=== PATIENT | male | born 1975 | race Caucasian/White ===

== ENCOUNTER 2017-09-14 09:54 | Emergency (ER) | payer OTHER ==
[2017-09-14 09:59] VITALS: TEMP 98.1
[2017-09-14] MEDS ORDERED: ONDANSETRON 4 MG/2 ML VIAL IVP ONE (10:01)
[2017-09-14] MEDS ORDERED: NS 1,000 ML IV ONE ×2 (10:01)
--- NOTE | 2017-09-14 10:01 | EDPHY ---
H & P Stated Complaint: N/V/D x 2 days; "I think I have food poisoning" Time Seen by Provider: 09/14/17 10:00 HPI/ROS: CHIEF COMPLAINT: Nausea, vomiting and diarrhea HISTORY OF PRESENT ILLNESS: The patient presents to the ED with a several day history of nausea, vomiting and diarrhea. The patient denies significant abdominal pain or alcohol consumption. The patient has no prior history of abdominal pathology or significant surgical history. The patient has not been on recent antibiotics or travel outside the [place]. The patient may have had a small amount of hematemesis in his vomit this morning but denies any melena. He denies significant NSAID usage or anticoagulant use. The patient feels globally weak from presumed dehydration. The patient denies fever, cough or congestion. He denies additional acute complaints. REVIEW OF SYSTEMS: A comprehensive 10 point review of systems is otherwise negative aside from elements mentioned in the history of present illness. Source: Patient - Personal History Current Tetanus Diphtheria and Acellular Pertussis (TDAP): Yes - Medical/Surgical History Other PMH: glaucoma R eye - Social History Smoking Status: Former smoker - Physical Exam Exam: General Appearance: Alert, no distress Eyes: Pupils equal and round no pallor or injection ENT, Mouth: Dry mucous membranes Respiratory: There are no retractions, lungs are clear to auscultation Cardiovascular: Regular rate and rhythm Gastrointestinal: Abdomen is soft and nontender, minimal epigastric tenderness , no masses, bowel sounds normal Neurological: A&O, normal motor function, normal sensory exam, normal cranial nerves Skin: Warm and dry, no rashes Musculoskeletal: Neck is supple nontender Extremities: symmetrical, full range of motion Constitutional: Initial Vital Signs Temperature (C) 36.7 C 09/14/17 09:56 Heart Rate 79 09/14/17 09:56 Respiratory Rate 18 09/14/17 09:56 Blood Pressure 109/71 09/14/17 09:56 O2 Sat (%) 96 09/14/17 09:56 O2 Delivery Mode Room Air Allergies/Adverse Reactions: No Known Allergies Allergy (Unverified 09/14/17 09:59) Home Medications: Medication Instructions Recorded Eye Drops For Glaucoma 09/14/17 Medical Decision Making ED Course/Re-evaluation: The patient presents to the ED with a several day history of vomiting and diarrhea. The patient did have a small amount of hematemesis likely secondary to a Khloe-Chakraborty type tear. The patient's abdominal examination is benign without evidence of an acute abdomen or peritonitis. The patient had an IV established. He received 2 L of normal saline for IV rehydration and dehydration. The patient's laboratory studies demonstrate no evidence of a significant leukocytosis, anemia, renal failure or metabolic derangement. The patient received serial examinations in the ED over a 2.5 hr period. At 1: 00 p.m. he is feeling much better and is tolerating the p.o. liquids and crackers without recurrent symptoms. The patient will be discharged home with a prescription for Zofran and encouraged to use Imodium as needed. He is given customary aftercare instructions and return precautions. Differential Diagnosis: Differential diagnosis considered includes dehydration, metabolic abnormality, gastroenteritis, renal failure - Data Points Laboratory Results: Laboratory Results 09/14/17 10:12 09/14/17 10:12 09/14/17 09/14/17 10:12 10:12 WBC 10.18 10^3/uL H 10^3/uL (3.80-9.50) RBC 4.61 10^6/uL 10^6/uL (4.40-6.38) Hgb 16.0 g/dL g/dL (13.7-17.5) Hct 43.3 % % (40.0-51.0) MCV 93.9 fL fL (81.5-99.8) MCH 34.7 pg H pg (27.9-34.1) MCHC 37.0 g/dL H g/dL (32.4-36.7) RDW 12.6 % % (11.5-15.2) Plt Count 221 10^3/uL 10^3/uL (150-400) MPV 10.6 fL fL (8.7-11.7) Neut % (Auto) 84.1 % H % (39.3-74.2) Lymph % (Auto) 7.5 % L % (15.0-45.0) [place] % (Auto) 7.5 % % (4.5-13.0) Eos % (Auto) 0.3 % L % (0.6-7.6) Baso % (Auto) 0.2 % L % (0.3-1.7) Nucleat RBC Rel Count 0.0 % % (0.0-0.2) Absolute Neuts (auto) 8.57 10^3/uL H 10^3/uL (1.70-6.50) Absolute Lymphs (auto) 0.76 10^3/uL L 10^3/uL (1.00-3.00) Absolute Monos (auto) 0.76 10^3/uL 10^3/uL (0.30-0.80) Absolute Eos (auto) 0.03 10^3/uL 10^3/uL (0.03-0.40) Absolute Basos (auto) 0.02 10^3/uL 10^3/uL (0.02-0.10) Absolute Nucleated RBC 0.00 10^3/uL 10^3/uL (0-0.01) Immature Gran % 0.4 % % (0.0-1.1) Immature Gran # 0.04 10^3/uL 10^3/uL (0.00-0.10) Sodium 142 mEq/L mEq/L (134-144) Potassium 3.8 mEq/L mEq/L (3.5-5.2) Chloride 104 mEq/L mEq/L (97-110) Carbon Dioxide 22 mEq/l mEq/l (22-31) Anion Gap 16 mEq/L mEq/L (8-16) BUN 12 mg/dL mg/dL (7-23) Creatinine 0.7 mg/dL mg/dL (0.7-1.3) Estimated GFR > 60 Glucose 111 mg/dL H mg/dL (70-100) Calcium 9.4 mg/dL mg/dL (8.5-10.4) Lipase 28 IU/L IU/L (23-300) Medications Given: Discontinued Medications Sodium Chloride (Ns) 1,000 mls @ 0 mls/hr IV EDNOW ONE; Wide Open PRN Reason: Protocol Stop: 09/14/17 10:02 Last Admin: 09/14/17 10:14 Dose: 1,000 mls Sodium Chloride (Ns) 1,000 mls @ 0 mls/hr IV EDNOW ONE; Wide Open PRN Reason: Protocol Stop: 09/14/17 10:02 Last Admin: 09/14/17 10:15 Dose: 1,000 mls Ondansetron HCl (Zofran) 4 mg IVP EDNOW ONE Stop: 09/14/17 10:02 Last Admin: 09/14/17 10:14 Dose: 4 mg Departure - Departure Disposition: Home, Routine, Self-Care Clinical Impression: Dehydration, Gastroenteritis Condition: Good Instructions: Gastroenteritis (ED) Additional Instructions: 1. Zofran as needed for nausea. 2. Imodium as needed for recurrent diarrhea. 3. Return to the ED for severe pain, high fever, intractable vomiting or other concerns. Referrals: NONE *PRIMARY CARE P,. [Primary Care Provider] - As per Instructions
[2017-09-14 10:23] LABS: PLATELET COUNT 221 10^3/uL (150-400)
[2017-09-14 10:59] VITALS: RESP 16
[2017-09-14 13:20] VITALS: BP 115/76; PULSE 75; O2SAT 100
== END 2017-09-14 13:22 | disposition home or self-care (01) ==
DX: K52.9 Noninfective gastroenteritis and colitis, unspecified (principal); E86.0 Dehydration; Z87.891 Personal history of nicotine dependence
CPT/HCPCS: 96374; J2405

== ENCOUNTER → 2018-07-13 | Outpatient (CLI) | payer OTHER | LOC: FIMAGING 10:19 | PROVIDERS: ATTEND Physician Assistant | DX: M25.531 Pain in right wrist (principal) ==